=== PATIENT | male | born 1990 | race African-American/Black ===

== ENCOUNTER 2017-07-06 02:23 | Outpatient (CLI) | payer OTHER | END 2017-07-06 02:24 | disposition critical access hospital (66) | LOC: EMS 02:23 | PROVIDERS: ATTEND Surgery | DX: T14.91 Suicide attempt (principal) | CPT/HCPCS: A0425; A0429 ==

== ENCOUNTER 2017-07-06 02:42 | Emergency (ER) | payer OTHER ==
[2017-07-06 03:05] LABS: BASOPHILS % (AUTO) 0.4 %; EOSINOPHILS # (AUTO) 0.1 10^3/uL (0.0-0.7); EOSINOPHILS % (AUTO) 1.5 %; HCT - HEMATOCRIT 41.7 % (42.0-52.0); HGB - HEMOGLOBIN 13.8 g/dL (14.0-18.0); LYMPHOCYTES # (AUTO) 1.7 10^3/uL (1.5-3.5); LYMPHOCYTES % (AUTO) 31.4 %; MEAN CORPUSCULAR HEMOGLOBIN 27.7 pg (27.0-31.0); MEAN CORPUSCULAR HGB CONC 33.1 g/dL (32.0-36.0); MEAN CORPUSCULAR VOLUME 83.9 fL (80.0-94.0); MEAN PLATELET VOLUME 8.1 fL (7.4-11.4); MONOCYTES # (AUTO) 0.5 10^3/uL (0.0-1.0); MONOCYTES % (AUTO) 8.9 %; NEUTROPHILS # (AUTO) 3.1 10^3/uL (1.5-6.6); NEUTROPHILS % (AUTO) 57.8 %; NUCLEATED RED BLOOD CELLS AUTO 0.1 /100WBC; RED BLOOD COUNT 4.97 10^6/uL (4.70-6.10); RED CELL DISTRIBUTION WIDTH 12.7 % (12.0-15.0); UNCORRECTED WHITE BLOOD COUNT 5.3 x10^3/uL; WHITE BLOOD COUNT 5.3 x10^3/uL (4.8-10.8)
[2017-07-06 03:22] LABS: ALBUMIN/GLOBULIN RATIO 1.3 (1.0-2.2); BILIRUBIN,TOTAL 0.8 mg/dL (0.2-1.0); BUN - BLOOD UREA NITROGEN 11 mg/dL (6-20); CALCIUM 9.3 mg/dL (8.5-10.3); CARBON DIOXIDE - CO2 25 mmol/L (21-32); CHLORIDE 104 mmol/L (101-111); CREATININE 0.9 mg/dL (0.6-1.2); GFR - MDRD 126 (>89); GLUCOSE 93 mg/dL (70-100); LIPASE 24 U/L (22-51); POTASSIUM 3.7 mmol/L (3.5-5.0); SALICYLATE < 6.0 mg/dL; SODIUM 138 mmol/L (135-145); TOTAL PROTEIN 7.9 g/dL (6.7-8.2)
[2017-07-06 03:23] LABS: ACETAMINOPHEN < 10 ug/mL (10-30)
--- NOTE | 2017-07-06 03:57 | ED Physician Documentation ---
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 This evening the 2 were [place] the beach [place] and things became passionate and he made advances that were declined. She became upset with this and this devastated the patient. He felt bad and felt he was a bad person. She would not talk to him for several hours this evening and he became despondent and walked out into the sound into chest deep water but realized this would not work for suicide. He got back into his truck got a large knife out of his backpack and cut on his right arm. He scratched the arm 14 times. Police happened by and when they asked what was up he told them and the ambulance was summoned. He was transported to the hospital by ambulance without incident. He has been drinking only a small amount and denies drug use. The patient has been in the [employer] 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 He is the oldest of 4 children , he did have some college credit and he joined the [employer] with the intent on not relying on his family for support. He has been in one relationship lasting more than a year and broke up when he joined the [employer] He has had other relationships but none have lasted. He is not happy with his work at the [employer] but he is not able to identify another job he could do there. He does not like the control issue with the [employer] and feels like he gets some eye rolling when he talks about his feelings at work. He does have a filter press supervisor who has assisted him in getting into counselling as he has told his filter press supervisor about his feelings of SI. He has had one counselling session. He is having trouble sleeping at night with early childhood educator aide awakening and he has some anhedonia. He is in a martial arts program but is not feeling like participating. He is eating OK. He continues to feel depressed and feels like he wishes he had been successful at the suicide attempt. Review of Systems Constitutional: denies: Fever, Chills, Myalgias Eyes: denies: Decreased vision Ears: denies: Ear pain Nose: denies: Rhinorrhea / runny nose, Congestion Throat: denies: Sore throat Cardiac: denies: Chest pain / pressure, Palpitations Respiratory: denies: Dyspnea, Cough GI: denies: Abdominal Pain, Nausea, Vomiting : denies: Dysuria, Frequency Skin: reports: Laceration (s). denies: Rash Musculoskeletal: reports: Extremity pain. denies: Neck pain, Back pain, Extremity swelling Neurologic: denies: Generalized weakness, Focal weakness, Numbness, Headache, Head injury, LOC Psychiatric: reports: Depressed, Anxiety. denies: Hallucinations PD PAST MEDICAL HISTORY - Past Surgical History Past Surgical History: No - Present Medications Home Medications: Ambulatory Orders Medication Instructions Recorded Confirmed No Known Home Medications [No 10/15/16 07/06/17 Known Home Medications] - Allergies Allergies/Adverse Reactions: Allergies Allergy/AdvReac Type Severity Reaction Status Date / Time No Known Drug Allergies Allergy Verified 10/15/16 07:56 - Social History Does the pt smoke?: No Smoking Status: Never smoker Does the pt drink ETOH?: Yes Does the pt have substance abuse?: No - Immunizations Immunizations are current?: Yes PD ED PE NORMAL - Vitals Vital signs reviewed: Yes (normal ) - General General: Alert and oriented X 3, Well developed/nourished, Other (cooperative with very flat affect ) - HEENT HEENT: Atraumatic, PERRL, EOMI, Ears normal, Moist mucous membranes, Pharynx benign, Dentition benign - Neck Neck: Supple, no meningeal sign, No bony TTP - Cardiac Cardiac: RRR, No murmur - Respiratory Respiratory: No respiratory distress, Clear bilaterally - Abdomen Abdomen: Soft, Non tender - Back Back: No CVA TTP, No spinal TTP - Derm Derm: Normal color, Warm and dry, No rash - Extremities Extremities: No deformity, No edema, Other (There are 14 superficial abrasions to the left volar forearm ) - Neuro Neuro: Alert and oriented X 3, photoengraving photographer 2-12 intact, No motor deficit, No sensory deficit, Normal speech - Psych Psych: Other (mood is somber and the affect is flat. ) Results - Vitals Vitals: Oxygen O2 Source Room air - Labs Labs: Laboratory Tests 07/06/17 07/06/17 07/06/17 02:56 02:56 02:56 WBC 5.3 RBC 4.97 Hgb 13.8 L Hct 41.7 L MCV 83.9 MCH 27.7 MCHC 33.1 RDW 12.7 Plt Count 201 MPV 8.1 Neut # 3.1 Lymph # 1.7 Sharp # 0.5 Eos # 0.1 Baso # 0.0 Absolute Nucleated RBC 0.00 Nucleated RBCs 0.1 Sodium 138 Potassium 3.7 Chloride 104 Carbon Dioxide 25 Anion Gap 9.0 BUN 11 Creatinine 0.9 Estimated GFR (MDRD) 126 Glucose 93 Calcium 9.3 Total Bilirubin 0.8 AST 34 ALT 26 Alkaline Phosphatase 62 Troponin I < 0.04 Total Protein 7.9 Albumin 4.5 Globulin 3.4 Albumin/Globulin Ratio 1.3 Lipase 24 Urine Color Urine Clarity Urine pH Ur Specific [place] Urine Protein Urine Glucose (UA) Urine Ketones Urine Occult Blood Urine Nitrite Urine Bilirubin Urine Urobilinogen Ur Leukocyte Esterase Ur Microscopic Review Urine Culture Comments Salicylates < 6.0 Urine Opiates Screen Ur Oxycodone Screen Urine Methadone Screen Ur Propoxyphene Screen Acetaminophen < 10 L Ur Barbiturates Screen Ur Tricyclics Screen Ur Phencyclidine Scrn Ur Amphetamine Screen U Methamphetamines Scrn U Benzodiazepines Scrn Urine Cocaine Screen U Cannabinoids Screen Ethyl Alcohol 16.6 07/06/17 04:15 WBC RBC Hgb Hct MCV MCH MCHC RDW Plt Count MPV Neut # Lymph # Sharp # Eos # Baso # Absolute Nucleated RBC Nucleated RBCs Sodium Potassium Chloride Carbon Dioxide Anion Gap BUN Creatinine Estimated GFR (MDRD) Glucose Calcium Total Bilirubin AST ALT Alkaline Phosphatase Troponin I Total Protein Albumin Globulin Albumin/Globulin Ratio Lipase Urine Color YELLOW Urine Clarity CLEAR Urine pH 6.0 Ur Specific [place] 1.015 Urine Protein NEGATIVE Urine Glucose (UA) NEGATIVE Urine Ketones NEGATIVE Urine Occult Blood NEGATIVE Urine Nitrite NEGATIVE Urine Bilirubin NEGATIVE Urine Urobilinogen 0.2 (NORMAL) Ur Leukocyte Esterase NEGATIVE Ur Microscopic Review NOT INDICATED Urine Culture Comments NOT INDICATED Salicylates Urine Opiates Screen NEGATIVE Ur Oxycodone Screen NEGATIVE Urine Methadone Screen NEGATIVE Ur Propoxyphene Screen NEGATIVE Acetaminophen Ur Barbiturates Screen NEGATIVE Ur Tricyclics Screen NEGATIVE Ur Phencyclidine Scrn NEGATIVE Ur Amphetamine Screen NEGATIVE U Methamphetamines Scrn NEGATIVE U Benzodiazepines Scrn NEGATIVE Urine Cocaine Screen NEGATIVE U Cannabinoids Screen NEGATIVE Ethyl Alcohol PD MEDICAL DECISION MAKING - ED course Complexity details: reviewed old records, reviewed results, re-evaluated patient , considered differential, d/w patient, d/w family ED course: 26 y/o active duty male with a history of depression appears depressed with a flat affect and anhedonia and he is feeling suicidal. He is medically cleared for evaluation by medical social worker as he is voluntary. He is transferred to [facility] for inpatient psych after evaluation by social work here. Departure - Departure Disposition: 65 Psych Hosp/Unit DC/Xfer Clinical Impression: Anxiety, Suicidal ideation Depression Qualifiers: Depression Type: other depression Qualified Code(s): F32.89 - Other specified depressive episodes Condition: Stable Instructions: ED Stress React, ED Depression Follow-Up: Walter Turner DO [Primary Care Provider] - Discharge Date/Time: 07/06/17 09:16
[2017-07-06 04:22] LABS: BILIRUBIN,URINE NEGATIVE (NEGATIVE)
[2017-07-06 04:26] LABS: UA CHARGE (STRIP ONLY) YES; UR CULTURE IF IND NOT INDICATED
[2017-07-06] MEDS ORDERED: ONDANSETRON 4 MG/2 ML VIAL IVP STA (05:19)
[2017-07-06] MEDS ORDERED: LORazepam 2 MG/ML SYRINGE IVP STA (05:19)
[2017-07-06 09:00] VITALS: BP 122/63
--- NOTE | 2017-07-06 09:02 | ED Physician Documentation ---
PD HPI MHE - Stated complaint Stated Complaint: SI/LACS - Chief complaint Chief Complaint: MHE PD PAST MEDICAL HISTORY - Past Surgical History Past Surgical History: No - Present Medications Home Medications: Ambulatory Orders Medication Instructions Recorded Confirmed No Known Home Medications [No 10/15/16 07/06/17 Known Home Medications] - Allergies Allergies/Adverse Reactions: Allergies Allergy/AdvReac Type Severity Reaction Status Date / Time No Known Drug Allergies Allergy Verified 10/15/16 07:56 - Social History Does the pt smoke?: No Smoking Status: Never smoker Does the pt drink ETOH?: Yes Does the pt have substance abuse?: No - Immunizations Immunizations are current?: Yes Results - Vitals Vitals: Vital Signs - 24 hr 07/06/17 07/06/17 02:46 08:50 Temperature 36.4 C L Heart Rate 63 60 Respiratory 16 16 Rate Blood Pressure 114/66 122/63 O2 Saturation 100 Oxygen O2 Source Room air - Labs Labs: Laboratory Tests 07/06/17 07/06/17 07/06/17 02:56 02:56 02:56 WBC 5.3 RBC 4.97 Hgb 13.8 L Hct 41.7 L MCV 83.9 MCH 27.7 MCHC 33.1 RDW 12.7 Plt Count 201 MPV 8.1 Neut # 3.1 Lymph # 1.7 Charles # 0.5 Eos # 0.1 Baso # 0.0 Absolute Nucleated RBC 0.00 Nucleated RBCs 0.1 Sodium 138 Potassium 3.7 Chloride 104 Carbon Dioxide 25 Anion Gap 9.0 BUN 11 Creatinine 0.9 Estimated GFR (MDRD) 126 Glucose 93 Calcium 9.3 Total Bilirubin 0.8 AST 34 ALT 26 Alkaline Phosphatase 62 Troponin I < 0.04 Total Protein 7.9 Albumin 4.5 Globulin 3.4 Albumin/Globulin Ratio 1.3 Lipase 24 Urine Color Urine Clarity Urine pH Ur Specific [place] Urine Protein Urine Glucose (UA) Urine Ketones Urine Occult Blood Urine Nitrite Urine Bilirubin Urine Urobilinogen Ur Leukocyte Esterase Ur Microscopic Review Urine Culture Comments Salicylates < 6.0 Urine Opiates Screen Ur Oxycodone Screen Urine Methadone Screen Ur Propoxyphene Screen Acetaminophen < 10 L Ur Barbiturates Screen Ur Tricyclics Screen Ur Phencyclidine Scrn Ur Amphetamine Screen U Methamphetamines Scrn U Benzodiazepines Scrn Urine Cocaine Screen U Cannabinoids Screen Ethyl Alcohol 16.6 07/06/17 04:15 WBC RBC Hgb Hct MCV MCH MCHC RDW Plt Count MPV Neut # Lymph # Charles # Eos # Baso # Absolute Nucleated RBC Nucleated RBCs Sodium Potassium Chloride Carbon Dioxide Anion Gap BUN Creatinine Estimated GFR (MDRD) Glucose Calcium Total Bilirubin AST ALT Alkaline Phosphatase Troponin I Total Protein Albumin Globulin Albumin/Globulin Ratio Lipase Urine Color YELLOW Urine Clarity CLEAR Urine pH 6.0 Ur Specific [place] 1.015 Urine Protein NEGATIVE Urine Glucose (UA) NEGATIVE Urine Ketones NEGATIVE Urine Occult Blood NEGATIVE Urine Nitrite NEGATIVE Urine Bilirubin NEGATIVE Urine Urobilinogen 0.2 (NORMAL) Ur Leukocyte Esterase NEGATIVE Ur Microscopic Review NOT INDICATED Urine Culture Comments NOT INDICATED Salicylates Urine Opiates Screen NEGATIVE Ur Oxycodone Screen NEGATIVE Urine Methadone Screen NEGATIVE Ur Propoxyphene Screen NEGATIVE Acetaminophen Ur Barbiturates Screen NEGATIVE Ur Tricyclics Screen NEGATIVE Ur Phencyclidine Scrn NEGATIVE Ur Amphetamine Screen NEGATIVE U Methamphetamines Scrn NEGATIVE U Benzodiazepines Scrn NEGATIVE Urine Cocaine Screen NEGATIVE U Cannabinoids Screen NEGATIVE Ethyl Alcohol PD MEDICAL DECISION MAKING - ED course ED course: At change of shift the patient's care was turned over to ar pending evaluation by medical anthropology director. The medical anthropology director was able to arrange for psychiatric hospitalization at [facility] psychiatric facility. 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 Transfer forms were completed. Departure - Departure Disposition: 65 Psych Hosp/Unit DC/Xfer Clinical Impression: Anxiety, Suicidal ideation Depression Qualifiers: Depression Type: other depression Qualified Code(s): F32.89 - Other specified depressive episodes Condition: Stable Instructions: ED Stress React, ED Depression Follow-Up: Walter Turner DO [Primary Care Provider] -
== END 2017-07-06 09:16 ==
LOC: EDUNIT# → SUPCPDRO 02:42 → ED 02:42
DX: F32.9 Major depressive disorder, single episode, unspecified (principal); F41.9 Anxiety disorder, unspecified; R45.851 Suicidal ideations
CPT/HCPCS: 36415; 80053; 80306; 80307; 80320; 80329; 81001; 81003; 83690; 84484; 85025; 87086; 99284; 99285

== ENCOUNTER 2018-01-18 09:26 | Emergency (ER) | payer OTHER ==
[2018-01-18 10:08] VITALS: BP 136/88
--- NOTE | 2018-01-18 10:31 | XRAY Report ---
EXAM: LEFT FIRST DIGIT RADIOGRAPHY EXAM DATE: 01/18/2018 10:22 AM. CLINICAL HISTORY: Injury well training. Pain. COMPARISON: None. TECHNIQUE: 3 views. FINDINGS: Bones: Oblique fracture through the proximal aspect of the first metacarpal with approximately one hawkins lf shaft width lateral offset and 45 degrees apex lateral angulation. Joints: Normal. No subluxations. Soft Tissues: Regional soft tissue swelling. IMPRESSION: Acute displaced fracture of the first metacarpal. [facility] Referring Provider Line: [phone] SITE ID: [id number]
--- NOTE | 2018-01-18 10:40 | ED Physician Documentation ---
PD HPI UPPER EXT INJURY - Stated complaint Stated Complaint: LEFT THUMB INJ - Chief complaint Chief Complaint: Ext Problem - History obtained from History obtained from: Patient - History of Present Illness Location: Other (About 3 weeks ago he injured his left hand doing some mixed martial arts fighting. It has been persistently bothering him. 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.) Review of Systems Constitutional: reports: Reviewed and negative Throat: reports: Reviewed and negative Cardiac: reports: Reviewed and negative Respiratory: reports: Reviewed and negative PD PAST MEDICAL HISTORY - Past Surgical History Past Surgical History: No - Present Medications Home Medications: Ambulatory Orders Medication Instructions Recorded Confirmed Mirtazapine 15 mg PO 01/18/18 - Allergies Allergies/Adverse Reactions: Allergies Allergy/AdvReac Type Severity Reaction Status Date / Time No Known Drug Allergies Allergy Verified 10/15/16 07:56 - Social History Does the pt smoke?: No Smoking Status: Never smoker Does the pt drink ETOH?: Yes Does the pt have substance abuse?: No - Immunizations Immunizations are current?: Yes - POLST Patient has POLST: No PD ED PE NORMAL - Vitals Vital signs reviewed: Yes - General General: Alert and oriented X 3, No acute distress - Extremities Extremities: Other (He is tender at the base of the first metacarpal of the left hand with an obvious deformity, but has relatively good range of motion and is neurovascularly intact at the tip.) - Neuro Neuro: Alert and oriented X 3, Normal speech Results - Vitals Vitals: Vital Signs - 24 hr 01/18/18 10:05 Temperature 36.8 C Heart Rate 85 Respiratory 18 Rate Blood Pressure 136/88 H O2 Saturation 100 Oxygen O2 Source Room air - Rads (name of study) left thumb x-ray Radiology: EMP read contemporaneously (There is a displaced fracture of the proximal first metacarpal with one half shaft width of lateral offset and 45 of apex lateral angulation.) Procedures - Splint (location) L hand Splint applied by: Tech Type of splint: Fiberglass, Short arm, Thumb spica Other: Patient tolerated well, No complications, Neurovascular intact PD MEDICAL DECISION MAKING - ED course ED course: 27-year-old gentleman with a 3-week-old metacarpal fracture that looks like it will probably require internal fixation. Case was initially discussed with my on-call orthopedist, Dr. 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 I spoke with Dr. Lee on- call for [place] who would like him to go directly to the [facility] for evaluation and likely to schedule him for fixation. Departure - Departure Disposition: 01 Home, Self Care Clinical Impression: Fracture of metacarpal, first, left hand Qualifiers: Encounter type: initial encounter Fracture type: closed Metacarpal location: base Fracture morphology: unspecified fracture morphology Fracture alignment: displaced Qualified Code(s): S62.232A - Other displaced fracture of base of first metacarpal bone, left hand, initial encounter for closed fracture Condition: Good Record reviewed to determine appropriate education?: Yes Comments: Go directly to the [facility], drop the CD with the x-ray on it off at the radiology department and then proceed to the orthopedics clinic. Let them know that you were just in the emergency department, and I spoke with Dr. Lee who would like to see you immediately. Your blood pressure was elevated today on check into the emergency department. This does not mean that you have hypertension, it is a common phenomenon to come to the emergency department and have elevated blood pressure. I recommend that you see your primary care physician within the week to have it rechecked when you are feeling better. Discharge Date/Time: 01/18/18 11:10
== END 2018-01-18 11:10 | disposition home or self-care (01) ==
LOC: ED 09:26
DX: S62.232A Other displaced fracture of base of first metacarpal bone, left hand, initial encounter for closed fracture (principal); X58.XXXA Exposure to other specified factors, initial encounter; Y93.75 Activity, martial arts; R03.0 Elevated blood-pressure reading, without diagnosis of hypertension
CPT/HCPCS: 29125; 73140; 99283

== ENCOUNTER 2019-07-11 23:29 | Outpatient (CLI) | payer OTHER | END 2019-07-11 23:30 | disposition short-term general hospital (02) | LOC: EMS 23:29 | PROVIDERS: ATTEND Surgery | DX: R42 Dizziness and giddiness (principal); L29.9 Pruritus, unspecified; R11.2 Nausea with vomiting, unspecified | CPT/HCPCS: A0425; A0427 ==